=== PATIENT | female | born 1990 | race Asian ===

== ENCOUNTER 2022-01-19 12:40 | Emergency (ER) | payer OTHER ==
[2022-01-19 12:51] VITALS: BP 142/93; PULSE 94; RESP 18; TEMP 98; BMI 19.2
[2022-01-19] MEDS ORDERED: SULFAMETHOXAZOLE/TRIMETHOPRIM 800MG/160MG D.S. TABLET PO ONE (14:07)
[2022-01-19] MEDS ORDERED: valACYclovir HCL 1000 MG TABLET PO ONE (14:08)
[2022-01-19] MEDS ORDERED: valACYclovir HCL 500 MG TABLET (FP) ONE (14:13)
[2022-01-19] MEDS ORDERED: SULFAMETHOXAZOLE/TRIMETHOPRIM 800MG/160MG D.S. TABLET ONE (14:13)
== END 2022-01-19 14:41 | disposition home or self-care (01) ==
LOC: JERFT 12:40 → JER 12:40 → JERFT 14:41
DX: K13.0 Diseases of lips (principal)
CPT/HCPCS: 87070; 87186; 87205; 87252; 99283-25